=== PATIENT | female | born 1960 | race Caucasian/White ===

== ENCOUNTER 2018-08-15 11:11 | Outpatient (REF) | payer BC, SELFPAY ==
--- NOTE | 2018-08-15 09:15 | PAPFT_PTH ---
PATIENT: Almaz Hall V LOC: [facility] U#:[id number] AGE/SX: 58/F ROOM: RE08/15/[address]: LUIS Montiel : 1960 BED: DIS: 08/15/2018 SPEC #: [id number] RECD: 08/15/18 13:19 STATUS: CHANTAL FERRERA #: [id number] ELISSA: 08/15/18 09:[address]: Cira Bennett DEPT: [facility] Cytology RECD BY: Meenakshi Collins Tissues: 1 - CX/ENDOCX FOR PAP SMEARS Procedures: PAP THIN PREP/UVM Screening HPV DNA PROBE Comments: [id number]
== END 2018-08-15 11:31 ==
LOC: LBN 11:11
PROVIDERS: PCP Nurse Practitioner Family; Visit Provider Nurse Practitioner Family
DX: Z12.4 Encounter for screening for malignant neoplasm of cervix (principal); Z11.51 Encounter for screening for human papillomavirus (HPV)
CPT/HCPCS: 88142; 87624

== ENCOUNTER 2018-10-12 01:05 | Outpatient (CLI) | payer BC, SELFPAY ==
--- NOTE | 2018-10-12 07:55 | DI.MAMMO_ITS ---
SYMPTOM/DIAGNOSIS: BREAST CANCER SCREENING Z12.31 BILATERAL SCREENING MAMMOGRAM: Mammograms were interpreted according to the usual protocol including computer analysis with CAD system, tomosynthesis and C view imaging. Comparison is made with exams from 2012 through 2017. The breasts are composed of extremely dense fibroglandular tissue, breast density category D, No suspicious masses or suspicious microcalcifications are seen. There has been no significant change. IMPRESSION: Category 1-D, negative mammogram. Yearly screening mammography is recommended. [facility] ASSESSMENT OF FINDINGS: Negative. Category 1. Patient will receive a letter notifying them of these results. BI-RADS category D. The breasts are extremely dense, which lowers the sensitivity of mammography.
[2018-10-12 08:49] LABS: Anion Gap 8.3 mmol/L (3-11); BUN 14 mg/dL (7-18); CO2 31.7 mmol/L (21.0-32.0); CREATININE 0.89 mg/dL (0.55-1.02); Calcium 9.7 mg/dL (8.5-10.1); Chloride 102 mmol/L (98-107); Cholesterol 242 mg/dL (50-200); Glucose 89 mg/dL (70-100); HDL Cholesterol 94 mg/dL (40-60); LDL CHOLESTEROL 134 mg/dL (<100); Sodium 142 mmol/L (136-145); Triglyceride 50 mg/dL (30-150)
== END 2018-10-12 01:25 ==
PROVIDERS: PCP Nurse Practitioner Family; Visit Provider Nurse Practitioner Family
DX: E78.5 Hyperlipidemia, unspecified (principal); Z12.31 Encounter for screening mammogram for malignant neoplasm of breast
CPT/HCPCS: 36415; 77063; 77067; 80048; 80061; 83721

== ENCOUNTER 2019-08-26 01:49 | Outpatient (CLI) | payer BC, SELFPAY ==
--- NOTE | 2019-08-26 14:24 | DI.US_ITS ---
EXAM: US CAROTID CLINICAL HISTORY: Right carotid plaque seen on [facility] screening,mild carotid artery disease, I77.9 TECHNIQUE: Ultrasound performed using standard protocol. COMPARISON: There were no prior examinations for comparison. FINDINGS: On the right, no hemodynamically significant velocity elevations are present. The right vertebral ar miryam is antegrade. On the left, no hemodynamically significant velocity elevations are present. The left vertebral pearl ry is antegrade. IMPRESSION: No evidence of hemodynamically significant cervical carotid artery stenosis.
== END 2019-08-26 02:09 ==
PROVIDERS: PCP Nurse Practitioner Family; Visit Provider Nurse Practitioner Family
DX: I77.89 Other specified disorders of arteries and arterioles (principal)
CPT/HCPCS: 93880

== ENCOUNTER 2019-09-11 00:40 | Outpatient (CLI) | payer BC, SELFPAY ==
--- NOTE | 2019-09-11 10:24 | DI.US_ITS ---
APPROVED REPORT EXAM: Comprehensive 2D, Doppler, and color-flow Echocardiogram Rhythm: NSR Indications: MVP per patient but no ECHo, + systolic murmur. i34.0 Conclusion Left Ventricle : The left ventricle is normal size. The left ventricular systolic function is normal. There is normal LV segmental wall motion. The left ventricular diastolic function is normal. LVEF is estimated to be 60-65%. Right Ventricle : The right ventricle is normal size. The right ventricular systolic function is norm al. Atria : The left atrium size is normal. The right atrium size is normal. Aortic Valve : Aortic valve is probably trileaflet. Aortic valve leaflets open well. There is no aort ic valvular stenosis. Trace aortic regurgitation by color doppler. Mitral Valve : Mitral valve leaflets appear myxomatous, and are thickened. redundant chordae. No wandy dence of mitral valve stenosis. Mild mitral regurgitation directed posteriorly. The mitral valve leaf lets bend without significant prolapse Tricuspid Valve : Tricuspid valve leaflets appear myxomatous and thickened but open well. Mild tricus pid regurgitation. Pulmonic Valve : The pulmonary valve is normal in structure. Great Vessels : The aortic root is normal in size. The IVC is very mildly dialted. The IVC collapses >50% with inspiration. Estimated RVSP is 23-26 mmHg. There is no prior echocardiogram available for comparison. Wall motion Left Ventricle The left ventricle is normal size. The left ventricular systolic function is normal. There is normal left ventricular wall thickness. There is normal LV segmental wall motion. The left ventricular diast olic function is normal. LVEF is estimated to be 60-65%. Right Ventricle The right ventricle is normal size. The right ventricular systolic function is normal. Atria The left atrium size is normal. The right atrium size is normal. Aortic Valve Aortic valve is probably trileaflet. Aortic valve leaflets open well. There is no aortic valvular marisel nosis. Trace aortic regurgitation by color doppler. Mitral Valve Mitral valve leaflets appear myxomatous, and are thickened. redundant chordae. No evidence of mitral valve stenosis. Mild mitral regurgitation directed posteriorly. The mitral valve leaflets bend withou t significant prolapse Tricuspid Valve Tricuspid valve leaflets appear myxomatous and thickened but open well. Mild tricuspid regurgitation. Pulmonic Valve The pulmonary valve is normal in structure. Great Vessels The aortic root is normal in size. The ascending aorta is normal in size. The IVC is very mildly dial pk. The IVC collapses >50% with inspiration. Estimated RVSP is 23-26 mmHg. Pericardium There is no pericardial effusion. 2D Dimensions IVSd 0.84 cm F: 0.6-1.0 LV EDV A2C 76.10 mL PWd 0.88 cm F: 0.6 - 1.0 LV EDV A4C 75.40 mL LVDd 4.32 cm F: 3.9 - 5.3 LA Volume Index A2C 23.79 mL/m2 LVDs 2.95 cm F: 2.2 - 3.5 LA Volume Index A4C 19.13 mL/m2 Aortic Root 2.60 cm F: 2.7 - 3.3 LA Volume Index Biplane 24.66 mL/m2 RA Area A4C 15.99 cm2 LA Area A4C 13.02 cm2 LVOT 2.00 cm (M/F) 1.5-2.5 LA Area A2C 16.78 cm2 LVEF (Teich) 60.03 % EF AP4 62.07 % LVEF (Kirkpatrick's) 66.04 % F: 54 - 74 EF AP2 69.12 % LV Volume 64.18 mL F: 46 - 106 EF BP 66.04 % LV Volume Index 35.65 mL/m2 F: 29 - 61 FS 31.73 % LV Diastology E/A Ratio 1.5 MED E' 0.12 (>0.07 m/s) LV E/e MED 6.52 (<14) LAT E' 0.12 (>0.1 m/s) LV E/e LAT 6.66 (<14) Pulm Vein s 0.46 m/s PV S/D Ratio 1.46 Pulm Vein d 0.32 m/s Pulm Vein a 0.37 m/s Aortic Valve LVOT Area 3.13 cm2 LVOT Peak Billy. 1.32 m/s LVOT Mean Billy. 0.83 m/s LVOT Peak Gr. 6.99 mmHg GABY Vmax Index 1.53 cm2/m2 LVOT Mean Gr. 3.28 mmHg LVOT VTI 0.30 m GABY Mean Billy. Index 1.37 cm2/m2 AoV Peak Billy. 1.49 (0.5-1.3 m/s) AoV Mean Billy. 1.05 m/s AO Peak GR. 8.93 mmHg AO Mean GR. 4.88 (<5 mmHg) VTI Ratio 0.84 GABY (VTI) 2.62 (2.5-4.5 cm2) GABY (VTI) Index 1.45 cm/m2 Mitral Valve MV E Max Billy. 0.79 (0.4-1.3 m/s) MV A Velocity 0.53 (0.4-1.3 m/s) E/A Ratio 1.51 MV Decel. Time 180.28 (160-240 msec) MV PHT 52.28 msec MVA PHT 4.21 cm2 Tricuspid Valve TR P. Velocity 2.41 m/s TV Regurg Vmax 2.41 m/s RVSP 31.27 mmHg TR P. Gradient 23.27 mmHg
== END 2019-09-11 01:00 ==
PROVIDERS: PCP Nurse Practitioner Family; Visit Provider Nurse Practitioner Family
DX: I34.1 Nonrheumatic mitral (valve) prolapse (principal); R01.1 Cardiac murmur, unspecified; I08.0 Rheumatic disorders of both mitral and aortic valves
CPT/HCPCS: 93306

== ENCOUNTER 2019-10-21 00:55 | Outpatient (CLI) | payer BC, SELFPAY ==
--- NOTE | 2019-10-21 15:08 | DI.MAMMO_ITS ---
EXAM: MG MAMMO SCREENING CLINICAL HISTORY: screening Z12.39 TECHNIQUE: Bilateral full field digital CC and MLO mammographic images were obtained with 3D tomosyn thesis and utilizing computer aided detection (CAD). COMPARISON: Available for comparison. FINDINGS: Masses/Architectural Distortion: None seen. Microcalcifications: No suspicious pleomorphic-type are seen. Skin Thickening/Nipple Retraction: None. IMPRESSION: 1. No significant interval change with no specific features of malignancy noted. 2. Unless there is more urgent need, screening mammography is recommended, as per [employer] guidelines. ACR BI-RAD Category- 1 Negative Breast Density - Category D - Extremely dense The mammogram demonstrates the patient's breast tissue is dense. Dense breast tissue is very common a nd is not abnormal but dense breast tissue can make it harder to find cancer on a mammogram. Also, de nse breast tissue may increase their breast cancer risk. This information about the result of the [facility] mogram report was provided to the patient to raise their awareness. Use this report when you speak wi th the patient about their risks for breast cancer, which includes their family history. At that time , you may recommend for more screening tests (Ultrasound or MRI) as they might be useful based on the ir risk. A negative radiographic report should not delay biopsy if a dominant or clinically suspicious mass is present. Up to ten percent of cancers are not identified on mammography. A negative report may reinforce clinical impression. Adenosis and dense breasts may obscure an underlying neoplasm. False positive reports average 6 to 10%. Patient will receive a letter notifying them of these results.
== END 2019-10-21 01:15 ==
PROVIDERS: PCP Nurse Practitioner Family; Visit Provider Nurse Practitioner Family
DX: Z12.31 Encounter for screening mammogram for malignant neoplasm of breast (principal)
CPT/HCPCS: 77063; 77067

== ENCOUNTER 2020-04-04 16:43 | Emergency (ER) | payer BC, SELFPAY ==
[2020-04-04 16:48] VITALS: BP 141/83; PULSE 73; RESP 18; TEMP 37.4; O2SAT 100
--- NOTE | 2020-04-04 17:28 | ED.GENADUL_ITS ---
Discharge Plan Disposition Patient Disposition: HOME Condition: Stable Discharge Details Chief Complaint: Laceration Clinical Impression: Laceration Primary Care Provider: Cira Bennett ED Provider: Josi Harrison Home Meds and New Rx's Prescriptions: Continued Adults Multivitamin 18 mg iron-400 mcg-25 mcg tablet PO RF: 0 ascorbic acid (vitamin C) 500 mg capsule 1,000 mg PO DAILY RF: 0 turmeric 400 mg capsule PO DAILY RF: 0 vitamin B complex tablet 1 tab PO DAILY RF: 0 cholecalciferol (vitamin D3) 1,000 UNIT capsule 1,000 unit PO DAILY RF: 0 aspirin [Aspirin Low-Strength] 81 MG tablet,chewable 81 mg PO DAILY RF: 0 Discharge Instructions Instructions: Laceration (ED) Additional Instructions: Keep initial dressing in place for 24 hours. Begin to wash area gently with soap and water once or twice daily. Apply topical antibiotic ointment to the wound. Observe for any signs of infection, redness, swelling, pain or discharge as discussed. Avoid submerging hand in water. Suture removal in 10 days as discussed. Your tetanus is due to be updated in 2 years Return to the emergency room for any worsening, concerns or alarming symptoms sooner if needed or for any signs of infection as discussed Discharge Data Discharge Date/Time-TO BE ENTERED AT DEPARTURE: 04/04/20 17:40 Medical Decision Making 60-year-old patient presenting for a laceration to her left forearm distally which occurred accidentally at home a on a piece of sharp glass which was broken in the kitchen. Patient has no significant concern of foreign body. Patient reports minimal pain. Tetanus up-to-date. Discussed plans for wound management. Patient consents to sutures. Area prepped with Betadine. See procedure note for details. Adequate wound closure with combination of both mattress sutures and interrupted sutures. Patient tolerated procedure without difficulty. Discussed wound management and suture removal as well as signs of infection. The patient was stable and requested discharge. Prior to discharge, my usual and customary return precautions were reviewed with the patient - this included follow-up instructions and reasons to return to the Emergency Department if conditions worsens, does not improve as expected, or other new concerns arise. HPI General Date/Time Provider Initiated Documentation: 04/04/20 16:44 . HPI Narrative: This is a 60-year-old patient presenting the emergency room for complaints of laceration to her left wrist. Patient sustained laceration on glass prior to arrival. Patient does not have concern of retained foreign body as this was a clean piece of glass that was broken in the kitchen. Patient reports minimal bleeding. Patient's tetanus up-to-date 8 years ago. Patient denies any numbness, tingling or weakness. Patient denies any other concerns or complaints at this time. No pain with range of motion of the wrist. No paresthesia. No weakness. Related Data Home Medications Medication Instructions Recorded Confirmed cholecalciferol (vitamin D3) 1,000 unit PO DAILY 01/20/13 09/19/19 aspirin [Aspirin Low-Strength] 81 mg PO DAILY tab-cap 05/15/15 09/19/19 multivit with minerals-iron 18 tab PO tab 07/24/18 09/19/19 mg-folic ac 400 mcg-vit K 25 mcg tablet vitamin B complex 1 tab PO DAILY 12/14/18 09/19/19 ascorbic acid (vitamin C) 500 mg 1,000 mg PO DAILY cap 08/16/19 09/19/19 capsule turmeric 400 mg capsule mg PO DAILY cap 08/16/19 09/19/19 Allergies Allergy/AdvReac Type Severity Reaction Status Date / Time Sulfa (Sulfonamide Allergy Severe RASH Verified 09/19/19 14:58 Antibiotics) General Stated Complaint: Laceration TREVOR: 3 Review of Systems All systems reviewed & are unremarkable except as noted in HPI and below [facility] Medical History Hyperlipidemia (Chronic) Mitral valve prolapse (Chronic) Osteoarthritis of right hip (Chronic) Mild-mod right hip dysplasia Osteopenia (Chronic) Dexa 2011 Periodic limb movement disorder (Chronic) PSG 08/23/13 Upper airway resistance syndrome (Chronic) PSG 08/23/13 Surgical History (Updated 08/16/19 @ 14:38 by Cira Bennett NP) H/O bilateral salpingo-oophorectomy (Inactive 12/21/18) By Dr. Chambers at [facility] for suspicious left ovarian cyst S/P colonoscopy (Acute 02/10/12) S/P laparoscopic procedure (Acute ~1996) Diagnostic lap for endometriosis Family History (Updated 08/20/19 @ 10:42 by Joe Ching) Mother Hyperlipidemia Collagenous colitis Hypertension Father Hyperlipidemia Stroke Prostate cancer Peripheral neuropathy Atrial fibrillation Carotid artery disease Myocardial infarction Hypertension Sister Obstructive sleep apnea syndrome Peripheral neuropathy Depression Sister Alcohol abuse Sister No problems noted. Brother No problems noted. Daughter No problems noted. Daughter No problems noted. Maternal Grandfather Stomach cancer Maternal Grandmother Heart disease Stroke Paternal Grandfather Heart disease Bone cancer Prostate cancer Paget's bone disease Paternal Grandmother , age 95 Peripheral neuropathy Heart disease Brother Heart disease Social History Smoking/Tobacco Use Status: Never Alcohol Intake: current Alcohol Intake frequency: a few times a week Alcohol type: wine Drug use: Never Substance use type: does not use Caregiver/Support person: No Household members: other Details: 4 Housing: house Do you need help understanding health information?: Rarely current occupation: Salon Assistant Pets and animals: Yes Pets and animals: dog(s) Sexually active: No Do you think of yourself as: straight/heterosexual Current gender identity: female What is your relationship status?: How often do you talk on the phone with friends or family?: three or more times per week How often do you get together with friends or relatives?: once per week How often do you attend samaritan or amish services?: 4 or more times per year Do you belong to any clubs or organized social groups?: yes Panel score (0-1 are the most socially isolated patients): 4 What type of physical activity do you participate in: walking Duration: 30-45 minutes/day Frequency: 5-6 times per week Annie/Yarsanism: Congregational Special annie needs: No Seatbelt use: always Helmet use: Yes Helmet use: always Drive intox or ride w/intox chuck wagon driver: No Do you feel safe at home: Yes Do you feel safe in your relationship?: Yes History History 2 Para 2 Hx # Term Pregnancies Multiple births Hx # Pregnancies Ectopic pregnancies AB induced Hx Number of Living Children 2 AB spontaneous Exam Narrative Exam Narrative: CONST: Healthy appearing patient, in no acute distress. Well hydrated. Alert and oriented. HENMT: Head nomocephalic, normal to inspection. Atraumatic. Hearing grossly normal. EYES: General normal appearance. Alignment normal. Eyelids normal. Conjunctiva normal. NECK: Normal visual inspection. FROM. Trachea midline. No Midline tenderness. CHEST: Normal insepection of the chest. RESP: Normal respiratory effort. Speaking full sentences. No cough. No audible wheezing. No retractions. CARDIO: No JVD. MUSCULOSKELETAL: Normal Gait. FROM of all extremities. Patient with full range of motion of the left arm. No pain with palpation of the wrist bones or hand. Patient has a 2 cm laceration on the lateral wrist. Linear. SKIN: Normal. Dry. No rashes. NEURO: Alert and awake. Speech clear. PSYCH: Normal affect. Cooperative. Course Vital Signs Vital signs: Vital Signs Temperature 37.4 C 04/04/20 16:48 Pulse 73 04/04/20 16:48 Respiratory Rate 18 04/04/20 16:48 Blood Pressure 141/83 H 04/04/20 16:48 Pulse Oximetry 100 04/04/20 16:48 Temperature 37.4 C 04/04/20 16:48 Pulse 73 04/04/20 16:48 Respiratory Rate 18 04/04/20 16:48 Respiratory Effort Non-Labored 04/04/20 16:51 Blood Pressure 141/83 H 04/04/20 16:48 Blood Pressure Position Sitting 04/04/20 16:48 Pulse Oximetry 100 04/04/20 16:48 Oxygen Delivery Method Room Air 04/04/20 16:48 Oxygen Flow Rate 0 04/04/20 16:48 Pain Level 0 04/04/20 16:48 Procedures Laceration Laceration 1: Site: upper extremity (Forearm distally) Side (If applicable): left Size (cm): 2 Description: linear Depth: simple, single layer Local Anesthetic: Lidocaine 1% Amount of anesthesia used (mL): 3 Pre-repair: wound explored and irrigated extensively Skin layer closed with: other (Prolene) Size (cm): 4-0 Number of sutures: 5 Technique: simple, interrupted and horizontal mattress
== END 2020-04-04 17:40 | disposition home or self-care (01) ==
PROVIDERS: Emergency Provider Physician Assistant; PCP Nurse Practitioner Family
DX: S61.512A Laceration without foreign body of left wrist, initial encounter (principal); W25.XXXA Contact with sharp glass, initial encounter
CPT/HCPCS: 12001

== ENCOUNTER 2020-05-21 22:09 | Outpatient (REF) | payer BC, SELFPAY ==
[2020-05-21 21:10] LABS: HCT 41.3 % (36.0-46.0); HGB 13.8 g/dL (12.0-15.5); Mean Corp. HGB Concentration 33.4 g/dL (32.0-36.0); Mean Corpuscular Hemoglobin 30.9 pg (27.0-33.0); Mean Corpuscular Volume 92.6 fL (80-95); Mean Platelet Volume 11.3 fL (8.0-11.0); Platelet Count 223 x1000/uL (130-400); RBC 4.46 m/cumm (4.00-5.20); RBC Distribution Width 12.2 % (11.7-14.6); White Blood Cell Count 4.69 k/cumm (4.4-10.8)
[2020-05-21 21:42] LABS: Hemoglobin A1C 5.2 % (3.8-5.6)
[2020-05-21 21:46] LABS: ALT 29 U/L (14-59); AST 35 U/L (15-37); Albumin 4.4 g/dL (3.4-5.0); Alkaline Phosphatase 69 U/L (46-116); Anion Gap 7.3 mmol/L (3-11); BUN 16 mg/dL (7-18); Bilirubin, Total 0.5 mg/dL (0.2-1.0); CO2 30.7 mmol/L (21.0-32.0); CREATININE 0.84 mg/dL (0.55-1.02); Calcium 9.8 mg/dL (8.5-10.1); Calculated LDL 150 mg/dL (<100); Chloride 103 mmol/L (98-107); Cholesterol 240 mg/dL (<200); Glucose 89 mg/dL (74-106); HDL Cholesterol 78 mg/dL (40-60); Potassium 4.6 mmol/L (3.5-5.1); Sodium 141 mmol/L (136-145); Total Protein 7.2 g/dL (6.4-8.2); Triglyceride 62 mg/dL (<150); Vitamin B12 779 pg/mL (193-986)
== END 2020-05-21 22:29 ==
LOC: LBN 22:09
PROVIDERS: PCP Nurse Practitioner Family; Visit Provider Nurse Practitioner Family
DX: E78.5 Hyperlipidemia, unspecified (principal); R20.2 Paresthesia of skin
CPT/HCPCS: 80053; 80061; 85027; 82607; 83036

== ENCOUNTER 2020-10-14 00:06 | Outpatient (CLI) | payer BC, SELFPAY ==
--- NOTE | 2020-10-14 08:00 | DI.DEXA_ITS ---
EXAM: XR DEXA BONE DENSITY W/WO ARTHUR CLINICAL HISTORY: Osteopenia, last dexa 2011,M85.80 TECHNIQUE: Routine DEXA evaluation of the lumbar spine, hip, or forearm. COMPARISON: No exams were available for comparison FINDINGS: Performed on a Hologic unit. Lateral image: No compression fracture evident. Lumbar Spine total T-score: 0.7 Hip total T-score:-1.9 Independent reading at the femoral neck yields a T-score of -2.2 Forearm total T-score: -1.8 IMPRESSION: Bone mineral density measures in the osteopenia range. Fracture risk is moderate. Note: Any spine fracture indicates 5x risk for subsequent spine fracture and 2x risk for subsequent h ip fracture. World Health Organization criteria for BMD interpretation classify patients: Normal...... T- Score at or above -1.0 Osteopenic... T- Score between -1.0 and -2.5 Osteoporosis... T-Score at or below -2.5
== END 2020-10-14 00:26 ==
PROVIDERS: PCP Nurse Practitioner Family; Visit Provider Nurse Practitioner Family
DX: M85.89 Other specified disorders of bone density and structure, multiple sites (principal)
CPT/HCPCS: 77080

== ENCOUNTER 2021-06-17 01:53 | Outpatient (CLI) | payer BC, SELFPAY ==
--- NOTE | 2021-06-17 08:30 | DI.MAMMO_ITS ---
Exam(s) MAMMO SCREENING EXAM: MAMMO SCREENING CLINICAL HISTORY: screening,Z12.39. TECHNIQUE: Bilateral full field digital CC and MLO mammographic images were obtained with 3D tomosyn thesis and utilizing computer aided detection (CAD). COMPARISON: Prior mammograms dating back to 2011, the most recent being September 2019. FINDINGS: Fibroglandular tissue is again noted be dense, this decreasing the sensitivity of the mammogram for f inding in underlying lesions. There are no new obvious radiographic findings in left breast. In the right breast there is an asymmetric density medial of center approximately 3 cm in from the ni pple, measuring approximately 6 x 5 millimeters. Spot compression CC and MLO views recommended as we ll as ultrasound There are no malignant-appearing microcalcification groups is region or elsewhere either breast. There is no significant architectural distortion nor skin thickening-retraction. IMPRESSION: Dense bilateral fibroglandular tissue. No radiographic evidence of malignancy in left breast. Possi ble right breast nodule. Spot compression views and ultrasound recommended. BI-RADS Category 0 - Assessment Incomplete: Need additional imaging evaluation Breast Density - Category D - Extremely dense Breast density Category C or D implies that the patient has dense breast tissue. Dense breast tissue can make it harder to find cancer on a mammogram. Dense breast tissue is also associated with an incr eased risk of breast cancer. This information about the result of the mammogram report was provided to the patient to raise their awareness. Use this report when you speak with the patient about their risks for breast cancer, which includes their family history. At that time, you may recommend additional screening tests (Ultrasoun d or MRI) as these tests may add significant information. A negative radiographic report should not delay biopsy if a dominant or clinically suspicious mass is present. Up to ten percent of cancers are not identified on mammography. A negative report may reinforce clinical impression. Adenosis and dense breasts may obscure an underlying neoplasm. False positive reports average 6 to 10%. Patient will receive a letter notifying them of these results.
== END 2021-06-17 02:13 ==
PROVIDERS: PCP Nurse Practitioner Family; Visit Provider Nurse Practitioner Family
DX: Z12.31 Encounter for screening mammogram for malignant neoplasm of breast (principal); R92.8 Other abnormal and inconclusive findings on diagnostic imaging of breast
CPT/HCPCS: 77063; 77067

== ENCOUNTER 2021-07-02 04:09 | Outpatient (CLI) | payer BC, SELFPAY ==
--- NOTE | 2021-07-02 | DI.MAMMO_ITS ---
Exam(s) MG MAMMO SCREEN CALL BACK UNI US BREAST RT LIMITED EXAM: US BREAST RT LIMITED CLINICAL HISTORY: F/U MAMMO, RT ASYMMETRIC DENSITY, ? NODULE TECHNIQUE: Ultrasound performed using standard protocol. COMPARISON: US US ECHOCARDIOGRAM from 09/11/2019 MG MG MAMMO SCREEN CALL BACK UNI from 07/02/2021 MG MG MAMMO SCREEN CALL BACK UNI from 07/02/2021 FINDINGS: Additional mammographic views of the right breast and right breast ultrasound are interpreted in conj unction. These examinations were obtained to evaluate questionable area of nodularity or asymmetric density seen on recent mammogram. Additional mammographic views fail to show a discrete mass. Breas t ultrasound shows no evidence of a mass or cyst. IMPRESSION: No specific evidence of malignancy at this time. Follow-up unilateral right breast mammogram recomme nded in 6 months. BI-RADS Cat 3 - 6 month - Probably Benign Finding: Recommend follow-up imaging in 6 months Breast Density - Category C - Heterogeneously dense DATA REPOSITORY:
== END 2021-07-02 04:29 ==
PROVIDERS: PCP Nurse Practitioner Family; Visit Provider Nurse Practitioner Family
DX: R92.8 Other abnormal and inconclusive findings on diagnostic imaging of breast (principal)
CPT/HCPCS: 76642; 77063; 77067

== ENCOUNTER 2021-08-26 02:11 | Outpatient (CLI) | payer BC, SELFPAY ==
[2021-08-26 10:06] LABS: Anion Gap 4.1 mmol/L (3-11); BUN 18 mg/dL (7-18); CO2 33.9 mmol/L (21.0-32.0); Calcium 9.6 mg/dL (8.5-10.1); Calculated LDL 149 mg/dL (<100); Chloride 104 mmol/L (98-107); Cholesterol 258 mg/dL (<200); Estimated GFR 56.37 (mL/min/1.73m2); Glucose 88 mg/dL (74-106); HDL Cholesterol 99 mg/dL (40-60); Potassium 4.6 mmol/L (3.5-5.1); Sodium 142 mmol/L (136-145); TSH (W/Ref FT4) 1.25 uIU/mL (0.36-3.74); Triglyceride 50 mg/dL (<150)
[2021-08-27 14:35] LABS: Albumin 67.4 % (55.8-66.1); Total Protein 7.5 g/dL (6.3-8.2)
== END 2021-08-26 02:12 | disposition home or self-care (01) ==
LOC: LBO 02:12
PROVIDERS: Psychiatry & Neurology Neurology; PCP Nurse Practitioner Family; Visit Provider Nurse Practitioner Family
DX: E78.5 Hyperlipidemia, unspecified (principal); G60.9 Hereditary and idiopathic neuropathy, unspecified; G62.9 Polyneuropathy, unspecified
CPT/HCPCS: 36415; 80048; 80061; 84165; 84443

== ENCOUNTER 2022-01-13 02:47 | Outpatient (CLI) | payer BC, SELFPAY ==
--- NOTE | 2022-01-13 | DI.US_ITS ---
Exam(s) US BREAST RT COMPLETE EXAM: US BREAST RT COMPLETE CLINICAL HISTORY: 6 MONTH F/U . TECHNIQUE: Complete ultrasound of the right breast was performed including all 4 quadrants, the retr oareolar region, and the ipsilateral axilla. COMPARISON: Prior mammograms were reviewed. Today's spot compression view was also reviewed FINDINGS: No evidence of solid or significant cystic lesions in all 4 quadrants of the right breast. No adenopathy in the right axilla. IMPRESSION: Negative complete right breast ultrasound Appropriate follow-up is to keep this patient on her yearly mammogram schedule, with earlier imaging if a self detected breast change is noted. BI-RADS Category 2 - Benign Findings Breast Density - Category C - Heterogeneously dense Breast density Category C or D implies that the patient has dense breast tissue. Dense breast tissue can make it harder to find cancer on a mammogram. Dense breast tissue is also associated with an incr eased risk of breast cancer. This information about the result of the mammogram report was provided to the patient to raise their awareness. Use this report when you speak with the patient about their risks for breast cancer, which includes their family history. At that time, you may recommend additional screening tests (Ultrasoun d or MRI) as these tests may add significant information. A negative radiographic report should not delay biopsy if a dominant or clinically suspicious mass is present. Up to ten percent of cancers are not identified on mammography. A negative report may reinforce clinical impression. Adenosis and dense breasts may obscure an underlying neoplasm. False positive reports average 6 to 10%. Patient will receive a letter notifying them of these results.
--- NOTE | 2022-01-13 08:00 | DI.MAMMO_ITS ---
Exam(s) MG MAMMO DIAGNOSTIC UNI EXAM: MAMMO DIAGNOSTIC UNI-RIGHT AND COMPLETE RIGHT BREAST ULTRASOUND CLINICAL HISTORY: 6mo f/u on right breast abnormal mammo,r92.8. TECHNIQUE: Unilateral spot mammographic images were obtained with 3D tomosynthesis technique and uti lizing computer aided detection (CAD). We also performed complete right breast ultrasound including all 4 quadrants, the retroareolar region , and the right axilla COMPARISON: Prior mammograms were reviewed, the most recent being June 2021. FINDINGS: DIAGNOSTIC RIGHT BREAST MAMMOGRAM: Some asymmetric tissue is seen. In addition to the CC and MLO views we performed an additional 3D sp ot CC view which renders this area less concerning. Then proceeded to ultrasound COMPLETE RIGHT BREAST ULTRASOUND: There is no evidence of solid or significant cystic lesions in all 4 quadrants. Right axilla is negative for adenopathy IMPRESSION: No radiographic evidence of malignancy Negative complete right breast ultrasound Appropriate follow-up is to places patient back on her yearly mammogram schedule, with earlier imagin g if a self detected breast changes noted.. The patient was informed of the findings and follow-up recommendations prior to leaving the [facility] today. BI-RADS Category 2 - Benign Findings Breast Density - Category C - Heterogeneously dense Breast density Category C or D implies that the patient has dense breast tissue. Dense breast tissue can make it harder to find cancer on a mammogram. Dense breast tissue is also associated with an incr eased risk of breast cancer. This information about the result of the mammogram report was provided to the patient to raise their awareness. Use this report when you speak with the patient about their risks for breast cancer, which includes their family history. At that time, you may recommend additional screening tests (Ultrasoun d or MRI) as these tests may add significant information. A negative radiographic report should not delay biopsy if a dominant or clinically suspicious mass is present. Up to ten percent of cancers are not identified on mammography. A negative report may reinforce clinical impression. Adenosis and dense breasts may obscure an underlying neoplasm. False positive reports average 6 to 10%. Patient will receive a letter notifying them of these results.
== END 2022-01-13 03:07 ==
PROVIDERS: PCP Nurse Practitioner Family; Visit Provider Nurse Practitioner Family
DX: R92.8 Other abnormal and inconclusive findings on diagnostic imaging of breast (principal); N64.59 Other signs and symptoms in breast
CPT/HCPCS: 76642; 77061; 77065; G0279

== ENCOUNTER 2022-06-07 07:27 | Day surgery (SDC) | payer BC, SELFPAY ==
--- NOTE | 2022-06-06 16:07 | W.PM.HP.N ---
Assessment and Plan Assessment and plan (1) Colon cancer screening: Status: Acute Assessment and plan: Informed consent is obtained for the procedural (explained in simple layman's terms that the pt. and/or family could understand) explaining risks vs benefits and alternatives to the procedure and consequences if we do not do the procedure and need/rational for the procedure. Risks include but are not limited to: bleeding, infection, perforation of esophagus, stomach, colon, small intestines, bronchus or trachea, or PTX. This would necessitate emergency surgery to repair the damage w/ possible ostomy; and other associated complications w/ the required surgery. Also complications of anesthesia including aspiration, MN/CVA/. History of Present Illness Narrative: She was on antibiotics w/ covid. This was early in February. Since than she has had problems w/ diarrhea adn control of BM. Stools are 2-3 x a day. They are formed. No blood. No weight loss. NO residue cough/sob breathe since covid. Assessment & Plan (1) Encounter for screening colonoscopy: The patient is here for Colonoscopy pre-op. Her last screening was in 2011 and was unremarkable. She has no family history of colon cancer. She has not had any bowel habit changes. -Discussed colonoscopy bowel prep as well as the procedure. Discussed possible complications of the procedure to include bleeding, pain, perforation, missed small lesion/polyp, sore throat, aspiration and adverse reaction to the medications. Questions were answered to patient?s satisfaction. No guarantees were implied or given.? She will hold her aspirin and vitamin D for 5 days prior to her procedure. HPI 62 y/o female with history of hyperlipidemia presents for colonoscopy screening pre-op. Her last screening was in? 2011, which was unremarkable. She denies a family history of colon cancer.? Patient reports that she had COVID in February at which time she was treated with antibiotics.? She started having diarrhea following antibiotics and discontinued their use.? However since then she has noted having formed stools after each meal.? At times this is associated with fecal urgency.? She denies having any bloody or black tarry stools, abdominal pain, diarrhea or constipation. She denies constitutional symptoms. Denies use of marijuana or any other recreational or illegal drugs. She denies chest pain, palpitations, dyspnea or dyspnea with exertion.? Patient describes walking daily and also participates in mountain biking on a weekly basis.? She denies prior history or family history of adverse reactions or complications with anesthesia. The patient denies any history of stroke, MN, seizures, bleeding or clotting disorders. She denies having any implanted metal in her body. Patient is here today for a colonoscopy for routine colorectal cancer surveillance. She completed bowel prep yesterday p.m. the results are just a clear yellow effluent. At this time she is not having any abdominal pain or cramping. She is having no nausea. She is not having any chest pain/chest pressure, shortness of breath, productive cough, or fevers. She has no changes in her medications or health status. She held her aspirin and her vitamin D. All questions are answered and she is stable for proposed procedure today. Review of Systems All systems reviewed & are unremarkable except as noted in HPI and below PFSH All Active Problems Colon cancer screening (Acute) Upper airway resistance syndrome (Chronic) PSG 08/23/13 Medical History COVID-19 (~03/08/22) Herpes zoster (~2017) Left flank Hyperlipidemia Idiopathic small fiber peripheral neuropathy Osteoarthritis of right hip Mild-mod right hip dysplasia Osteopenia Dexa 2019 Paresthesia of right leg Periodic limb movement disorder PSG 08/23/13 Surgical History H/O bilateral salpingo-oophorectomy (12/21/18) By Dr. Chambers at [facility] for suspicious left ovarian cyst S/P colonoscopy (02/10/12) S/P laparoscopic procedure (~1996) Diagnostic lap for endometriosis Family History Mother Hyperlipidemia Collagenous colitis Hypertension Heart disease Father Hyperlipidemia Stroke Prostate cancer Peripheral neuropathy Atrial fibrillation Carotid artery disease Myocardial infarction Hypertension Sister Obstructive sleep apnea syndrome Peripheral neuropathy Depression Sister Alcohol abuse Sister No problems noted. Brother No problems noted. Daughter No problems noted. Daughter No problems noted. Maternal Grandfather Stomach cancer Maternal Grandmother Heart disease Stroke Paternal Grandfather Heart disease Bone cancer Prostate cancer Paget's bone disease Paternal Grandmother , age 95 Peripheral neuropathy Heart disease Brother Heart disease Social History Smoking/Tobacco Use Status: Never Smoking risk assessment performed?: Yes Alcohol Intake: current Alcohol Intake frequency: a few times a week Alcohol type: wine Drug use: Never Substance use type: does not use Caregiver/Support person: No Household members: spouse and children Housing: house Communication Needs: None Do you need help understanding health information?: Never current occupation: Rehabilitation Manager Pets and animals: Yes Pets and animals: dog(s) Sexually active: No Current gender identity: decline to answer What is your relationship status?: How often do you talk on the phone with friends or family?: three or more times per week How often do you get together with friends or relatives?: once per week How often do you attend religious or episcopal services?: 4 or more times per year Do you belong to any clubs or organized social groups?: no Panel score (0-1 are the most socially isolated patients): 3 What type of physical activity do you participate in: walking and other Details: Pilates; body weight/weight exercise Duration: 30-45 minutes/day Frequency: 5-6 times per week Annie/Oriental Orthodox: Restoration Special annie needs: No Seatbelt use: always Helmet use: Yes Helmet use: always Drive intox or ride w/intox funeral car driver: No Do you feel safe at home: Yes Do you feel safe in your relationship?: Yes History History 2 Para 2 Hx # Term Pregnancies Multiple births Hx # Pregnancies Ectopic pregnancies AB induced Hx Number of Living Children 2 AB spontaneous Meds Allergies and Home Medications Allergies Allergy/AdvReac Type Severity Reaction Status Date / Time Sulfa (Sulfonamide Allergy Severe RASH Verified 06/07/22 07:57 Antibiotics) Home Medications Medication Instructions Recorded Confirmed Type aspirin 81 mg chewable tablet 81 mg PO DAILY 05/15/15 06/07/22 History (Aspirin Low-Strength) multivit with minerals-iron 18 1 tab PO DAILY 07/24/18 06/07/22 History mg-folic ac 400 mcg-vit K 25 mcg tablet (Adults Multivitamin) vitamin B complex 1 tab PO DAILY 12/14/18 06/07/22 History calcium carbonate 500 mg calcium 500 mg PO DAILY 08/24/21 06/07/22 History (1,250 mg) tablet cholecalciferol (vitamin D3) 25 5,000 unit PO DAILY 08/24/21 06/07/22 History mcg (1,000 unit) capsule vitamin K2 45 mcg capsule 45 mcg PO DAILY 08/24/21 06/07/22 History gabapentin 300 mg capsule 300 mg PO TID PRN pain #90 caps 05/30/22 06/07/22 Rx orgrppxo-tsr-ec9-dha 133 mg-epa 1 cap PO DAILY 06/06/22 06/07/22 History 167 ou-zkyr-vqbs-lactoferrin capsule (Dry Eye Formula) propylene glycol 0.6 % eye drops 1 drp ophthalmic (eye) DIRECTED 06/06/22 06/07/22 History (Systane Complete) Exam Const Other: PHYSICAL EXAM GENERAL APPEARANCE: Alert, healthy appearance, oriented, in no acute distress SKIN: No rashes.? No breakdown NECK: Supple, Trachea midline. No JVD. LUNGS: normal respiration/nl chest excursion. ?Clear to auscultation B/l no R/R/W ?HEART: Regular rate and rhythm, ABDOMEN: non tender to palpation, no masses or distention, no hernias. Normal bowel sounds
--- NOTE | 2022-06-06 16:11 | PDOC.DSDIS_ITS ---
Discharge Plan Disposition Condition: Good Discharge Details Reason For Visit: Colonoscopy for colon cancer screening Attending Provider: Brandie Mendez Primary Care Provider: iCra Bennett Home Meds and New Rx's Prescriptions: Continued Adults Multivitamin 18 mg iron-400 mcg-25 mcg tablet 1 tab PO DAILY vitamin B complex tablet 1 tab PO DAILY vitamin K2 45 mcg capsule 45 mcg PO DAILY calcium carbonate 500 mg calcium (1,250 mg) tablet 500 mg PO DAILY Label Comments: patient unsure of dose aspirin [Aspirin Low-Strength] 81 MG tablet,chewable 81 mg PO DAILY cholecalciferol (vitamin D3) 25 mcg (1,000 unit) capsule 5,000 unit PO DAILY gabapentin 300 mg capsule 300 mg PO TID PRN (Reason: pain) Qty: 90 2RF Systane Complete 0.6 % Drops 1 drp ophthalmic (eye) DIRECTED Dry Eye Formula 133 mg-167 mg- 170 mg Capsule 1 cap PO DAILY Discontinued bisacodyl [Dulcolax (bisacodyl)] 5 mg tablet,delayed release (DR/EC) 5 mg PO ONCE Qty: 4 0RF Rx Instructions: Take according to provider's instructions for colonoscopy prep. polyethylene glycol 3350 17 gram/dose powder 17 g PO ONCE Qty: 238 0RF Rx Instructions: To be taken as directed by prescriber's office for colonoscopy prep. Discharge Instructions Additional Instructions: DSU Colonoscopy Post- Op Instructions Instructions for Everyone who is given Anesthesia: For your safety, please do the following for the next twenty-four (24) hours: *Do Not operate a motor vehicle (car, truck, motorcycle, etc.) *Do Not drink alcoholic beverages or use any recreational drugs for the first 24 hours or while taking pain medications. The medications in your body may have a reaction that can be dangerous. *Do Not make any important decisions or sign any important papers. Findings: Normal Follow up: Biopsies were done to rule out any abnormalities. My office will send a letter in 2 to 3 weeks time detailing the results of the biopsies. 1. No lifting over 20 pounds or strenuous activity for the first 24 hours after your procedure. After 24 hours there are no restrictions on your activity but you may feel fatigued for a few days. 2. After you arrive home you may have a light meal and return to your normal diet as you can tolerate it without feeling sick to your stomach. 3. You may have a bloated, gaseous feeling in your belly (abdomen) after a colonoscopy. Passing gas and belching will help. Walking or lying down on your left side with your knees flexed may relieve the discomfort. Call the office at [phone] (Office) or [phone] (Hospital) right away if you notice any of the following: a.Vomiting of blood or ?coffee ground stools?. b.Rectal bleeding 1Tbsp, blood clots or continuous bleeding. c.Severe belly (abdominal) pain. d.A hard distended belly (abdomen) and an inability to pass gas. 4. Please don?t expect to have a normal BM (bowel movement) for 2-3 days after your procedure. 5. If there are questions regarding the findings of your procedure, please contact your doctor 6. If you are unable to contact your doctor with a problem, contact the hospital at [phone]. 7. Continue all your regular medications unless directed otherwise. I understand the above instructions and have no questions. Signature of Patient or Adult Escort Name of Responsible Adult Escort Signature of Nurse Date/Time Activity:: see above Diet:: see above DS: Diagnosis Discharge Diagnosis (1) Colon cancer screening: Status: Acute
--- NOTE | 2022-06-06 16:11 | W.COLOREPORT ---
Colonoscopy Report Date of procedure: 06/07/22 Pre-op diagnosis general: Colon cancer screening Post-op diagnosis procedure note: same Surgeon: Brandie Mendez Anesthesia Type: General:No Airway Estimated blood loss (mL): 1 Complications: None Disposition: same day Prep: Miralax/Dulcolax Retraction Time: 9 Procedure Description: After informed consent was obtained the patient was taken to the procedure room and placed in a left decubitous position. Monitors were applied and a time out was done. The patients name, date of , procedure, allergies to medications and metal in their body was reviewed. The patient was then sedated. Once sedated and comfortable a rectal exam was done. External exam was normal. Internal exam revealed a normal sphincter tone and no palpable masses. Back no without The scope was then introduced and retrofelexed. internal hemorrhoids were identified. The scope was then advanced to the cecum difficulty. The TI and appendiceal orifice were identified. The prep was BB PS 3 in all segments for total of 9 9. The scope was then slowly retracted over minutes back into the rectum., AVMs, or diverticula visualized. The mucosa is pink and healthy. The patient has noted change in bowel habits since she took antibiotics for COVID. Biopsies were done of the cecum/70 cm/60 cm / 30 cm/rectum. All specimens are retrieved and no bleeding is noted. The scope was re there are no polypsmoved and the patient was woken up and taken back to Same day surgery in stable condition. Severe pain The patient tolerated the procedure well and there were no immediate complications. Follow up: The patient should follow up in 10 years unless they develop changes in bowel habits or other new gastrointestinal complaints.
[2022-06-07 07:43] VITALS: BP 116/56; PULSE 64; RESP 17; TEMP 36.6; O2SAT 99
--- NOTE | 2022-06-07 08:17 | W.ANESPRE ---
General Info Date of Service Date Performed: 06/07/22 Height: 5 ft 9 in Weight: 62.7 kg Body Mass Index (BMI): 20.4 Surgical Procedure: Operation Date: 06/07/22 09:05 Proposed Procedure Side Surgeon josesito Mendez, DO Meds Allergies and Home Medications Allergies Allergy/AdvReac Type Severity Reaction Status Date / Time Sulfa (Sulfonamide Allergy Severe RASH Verified 06/07/22 07:57 Antibiotics) Home Medication Medication Instructions Recorded aspirin 81 mg chewable tablet 81 mg PO DAILY 05/15/15 (Aspirin Low-Strength) multivit with minerals-iron 18 1 tab PO DAILY 07/24/18 mg-folic ac 400 mcg-vit K 25 mcg tablet (Adults Multivitamin) vitamin B complex 1 tab PO DAILY 12/14/18 calcium carbonate 500 mg calcium 500 mg PO DAILY 08/24/21 (1,250 mg) tablet cholecalciferol (vitamin D3) 25 5,000 unit PO DAILY 08/24/21 mcg (1,000 unit) capsule vitamin K2 45 mcg capsule 45 mcg PO DAILY 08/24/21 gabapentin 300 mg capsule 300 mg PO TID PRN pain #90 caps 05/30/22 yklxkuyj-xzg-ht3-dha 133 mg-epa 1 cap PO DAILY 06/06/22 167 fm-pebh-oiqg-lactoferrin capsule (Dry Eye Formula) propylene glycol 0.6 % eye drops 1 drp ophthalmic (eye) DIRECTED 06/06/22 (Systane Complete) Current Visit Medications: Current Medications Generic Name Dose Route Start Last Admin Trade Name Freq PRN Reason Stop Dose Admin Hyoscyamine Sulfate 0.125 mg 06/06/22 16:06 Hyoscyamine 0.125 Mg Sl/Oral/Chew SL DIRECTED PRN Ringer's Solution 1,000 mls @ 80 mls/hr 06/07/22 06:00 IV 06/07/22 23:59 INFUSION REVA IV Miscellaneous Supplies 1 each 06/07/22 06:00 Iv Access IV 06/07/22 23:59 DIRECTED REVA Ondansetron HCl 4 mg 06/06/22 16:06 Ondansetron 4 Mg/2 Ml Vial IVP Q4H PRN PRN Nausea / Vomiting Sodium Chloride 0 ml 06/07/22 06:00 Normal Saline Flush 10 Ml Syr IV 06/07/22 23:59 PRN PRN Sodium Chloride 0 ml 06/07/22 06:00 Normal Saline 10 Ml Vial IJ 06/07/22 23:59 DIRECTED PRN Sterile Water 0 ml 06/07/22 06:00 Water,Injection,Sterile 10 Ml Vial IJ 06/07/22 23:59 DIRECTED PRN PFSH Active Problems Active Problems: Problem Status Onset Code Colon cancer screening Z12.11 Upper airway resistance syndrome G47.8 Medical History Medical History COVID-19 (~03/08/22) Herpes zoster (~2017) Left flank Hyperlipidemia Idiopathic small fiber peripheral neuropathy Osteoarthritis of right hip Mild-mod right hip dysplasia Osteopenia Dexa 2019 Paresthesia of right leg Periodic limb movement disorder PSG 08/23/13 Medical History Comments:: Inspiratory wheezes in bases b/l posterior. Surgical History Surgical History H/O bilateral salpingo-oophorectomy (12/21/18) By Dr. Chambers at [facility] for suspicious left ovarian cyst S/P colonoscopy (02/10/12) S/P laparoscopic procedure (~1996) Diagnostic lap for endometriosis Tobacco Smoking/Tobacco Use Status: Never Passive smoking exposure: Yes Alcohol Alcohol Intake: current Alcohol intake frequency: a few times a week Alcohol type: wine Substance Use Substance use: Never Substance use type: does not use Prental History History 2 Para 2 Hx # Term Pregnancies Multiple births Hx # Pregnancies Ectopic pregnancies AB induced Hx Number of Living Children 2 AB spontaneous Vital Signs and Lab Results Vital Signs Most Recent Vital Signs in EMR: Most Recent Vital Signs Temp Pulse Resp BP Pulse Ox 36.6 C 64 17 116/56 L 99 06/07/22 07:43 06/07/22 07:43 06/07/22 07:43 06/07/22 07:43 06/07/22 07:43 Lab Results Blood Type / Crossmatch: No Data to Display Complete Blood Count: No Data to Display Complete Metabolic Panel: No Data to Display Liver Function Panel: No Data to Display Coagulation Panel: No Data to Display Cardiac Panel: No Data to Display Arterial Blood Gas: No Data to Display Venous Blood Gas: No Data to Display Pancreas Panel: No Data to Display Thyroid Panel: No Data to Display Infectious Disease: No Data to Display Blood Cultures: No Data to Display Toxicology Panel: No Data to Display Anesthesia Assessment and Plan Anesthesia History Personal History: No History of Anesthesia Complications Family History: No Family History of Anesthesia Complications Exercise Tolerance Exercise Tolerance: Metabolic Equivalents>4 Pertinent Negatives Pertinent Negatives: No Symptoms of GERD, No Major Cardiovascular Symptoms or Complaints, No Major Pulmonary Symptoms or Complaints and No History of CVA/TIA Cardiac & Pulmonary Exam Cardiac Exam: Normal S1/S2 Heart Sounds Pulmonary Exam: Clear Bilateral Breath Sounds Implantable Cardiac Device Does patient have a Pacemaker or an ICD?: No Airway Exam Known Difficult Airway: No Mallampati Class: 1 Mouth Opening: Normal (> 3cm) Thyromental Distance: Greater than 3 cm Neck Range of Motion: Full ROM Neck Circumference: Normal Teeth Condition: Normal Dentition Airway Comments: Lower left cracked tooth ASA Classification ASA Score: ASA 2 Emergency Case?: No NPO Status NPO Status: NPO Clears >2 hours, Solids >8 hours Anesthesia Plan Resuscitation Status: Full Code Anesthesia Technique: General Anesthesia Airway Planned: Natural Airway Monitors Used: Standard Monitors
[2022-06-07] MEDS: Lactated Ringers 1,000 ML 80 ML IV (08:21)
[2022-06-07 08:22] VITALS: BMI 20.4
--- NOTE | 2022-06-07 09:19 | BOWEL_PTH ---
PATIENT: Almaz Hall V LOC: [facility] U#:[id number] AGE/SX: 62/F ROOM: RE06/07/[address]: Brandie Mendez : 1960 BED: DIS: 06/07/2022 SPEC #: [id number] RECD: 06/07/22 13:02 STATUS: [facility] #: [id number] ELISSA: 06/07/22 09:[address]: Brandie Mendez DEPT: Surgical Specimen RECD BY: Meenakshi Collins ENTERED: 06/07/22 13:05 SP TYPE: Bowel OTHR DR: Cira Bennett, LUIS Tissues: 1 - BIOPSY BOWEL 2 - BIOPSY BOWEL 3 - BIOPSY BOWEL 4 - BIOPSY BOWEL 5 - BIOPSY BOWEL Procedures: GROSS AND MICRO LEVEL 4 Comments: [id number]
[2022-06-07 09:35] VITALS: BP 109/62; PULSE 73; RESP 18; TEMP 36; O2SAT 100
--- NOTE | 2022-06-07 09:37 | W.ANESPOSTOP ---
Postoperative Evaluation Date, Time and Location Date Performed: 06/07/22 Time Performed: 09:37 Patient Location: Day Surgery Unit Vital Signs Most Recent Imported Vital Signs: Most Recent Vital Signs Temp Pulse Resp BP Pulse Ox 36.6 C 64 17 116/56 L 99 06/07/22 07:43 06/07/22 07:43 06/07/22 07:43 06/07/22 07:43 06/07/22 07:43 Most Recent Manually Entered Vital Signs: Adult Blood Pressure: 109/62 Heart Rate: 74 Respirations: 10 Oxygen Saturation (%): 99 Temperature (C): 36.3 C Pain Score (0-10 Scale): 0 Pain Score Most Recent Pain Score: Most Recent Pain Score Pain Level 0 06/07/22 07:43 Assessment Mental Status: Awake (Alert & Oriented to Patient Baseline) Airway and Respiratory Function: Patent airway with normal (patient baseline) respiratory exam Cardiovascular Function: Hemodynamically Stable Hydration Status: Adequately Hydrated Nausea & Vomiting: No Nausea or Vomiting Pain: Pt. Denies Any Pain Peripheral Nerve Block: Patient did not receive a nerve block
[2022-06-07 09:38] VITALS: BP 109/62; PULSE 74; RESP 10; TEMPC 36.3; O2SAT 99
[2022-06-07] MEDS: Hyoscyamine 0.125 MG SL/ORAL/CHEW SL (09:55)
[2022-06-07 10:05] VITALS: BP 135/80; PULSE 66; RESP 17; TEMP 36.2; O2SAT 100
[2022-06-07 10:55] LABS: C Diff PCR Negative (Negative)
== END 2022-06-07 10:37 | disposition home or self-care (01) ==
LOC: SUR 07:27
PROVIDERS: PCP Nurse Practitioner Family; Visit Provider Surgery
PROC: 0DJD8ZZ Inspection of Lower Intestinal Tract, Via Natural or Artificial Opening Endoscopic (ICD-10-PCS; CPT 45378; principal; 2022-06-07 09:00)
DX: Z12.11 Encounter for screening for malignant neoplasm of colon (principal)
CPT/HCPCS: 45378; 87493; 88305; J3490

== ENCOUNTER → 2022-07-29 09:14 | Outpatient (CLI) | payer BC, SELFPAY ==
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
--- OUTSIDE RECORDS SUMMARY | 2022-07-29 09:18 | XMS_ITS | Encounter Summary ---
:1960 Author Organization [facility] [place] [address] Care Team Providers Name Role Phone Sherita Abernathy MD Primary Care Provider Encounter Details Date Type Department Care Team Description 08/07/2012 Orders Only Orthopaedics at [facility] Paco Loya, Right hip pain [facility] Sushma cunningham MD (Primary Dx) [place] [address] [address]no [phone] [place] [address] Social History Tobacco Use Types Packs/Day Years Used Date Never Assessed Sex Assigned at Date Recorded Not on file documented as of this encounter Plan of Treatment Not on filedocumented as of this encounter Visit Diagnoses Diagnosis Right hip pain - Primary Pain in joint, pelvic region and thigh documented in this encounter Care Teams Drag Out Worker Relationship Specialty Start Date End Date Sherita Abernathy MD PCP - General 09/21/10 [address] [place] [address] documented as of this encounter
--- OUTSIDE RECORDS SUMMARY | 2022-07-29 09:18 | XMS_ITS | Encounter Summary ---
:1960 Author Organization [facility] [place] [address] Care Team Providers Name Role Phone Sherita Abernathy MD Primary Care Provider Encounter Details Date Type Department Care Team Description 08/01/2012 Orders Only Orthopaed[place] [facility] [place] Loya [place] [facility] [address] [place] [address] [address] [phone] [place] [id number] (Wo rk) Social History Tobacco Use Types Packs/Day Years Used Date Never Assessed Sex Assigned at Date Recorded Not on file documented as of this encounter Plan of Treatment Not on filedocumented as of this encounter Procedures Procedure Name Priority Date/Time Associated Diagnosis Comme nts FILM LIBRARY Routine 08/01/2012 7:44 AM Results f or this STORAGE ONLY MR HIP EDT procedur e are in the results section. documented in this encounter Results FILM LIBRARY- STORAGE ONLY MR HIP (08/01/2012 7:44 AM EDT) Anatomical Region Laterality Modality Other Specimen (Source) Anatomical Collection Method Collection Time Re ceived Time Location / / Volume Laterality 08/01/2012 7:44 AM EDT Narrative 12/19/2013 9:40 PM EST This is a non-reportable exam. Procedure Note Scout Martinez - 12/19/2013Formatting of t his note might be different from the original. This is a non-reportable exam. Paco Loya MD IMG FILM LIBRARY ORDERABLES documented in this encounter Visit Diagnoses Not on filedocumented in this encounter Care Teams Infant Toddler Lead Teacher Relationship Specialty Start Date End Date Sherita Abernathy MD PCP - General 09/21/10 [address] [place] [address] documented as of this encounter
--- OUTSIDE RECORDS SUMMARY | 2022-07-29 09:18 | XMS_ITS | Clinical Summary ---
:1960 Author Organization [facility] [place] [address] Care Team Providers Name Role Phone Sherita Abernathy MD Primary Care Provider Allergies Active Allergy Reactions Severity Noted Date Comments Sulfa (Sulfonamide Antibiotics) Rash 2 Medications Medication Sig Dispensed Refills Start Date End Date Status DOCOSAHEXANOIC ACID/EPA Take by mouth. 0 Active (FISH OIL ORAL) aspirin 81 mg EC tablet Take 81 mg by 0 Active mouth daily. ASCORBATE CALCIUM Take by mouth. 0 Active (VITAMIN C ORAL) CALCIUM Take by mouth. 0 Activ e CARBONATE/VITAMIN D3 (CALCIUM + D ORAL) terbinafine (LAMISIL) Take 250 mg by 0 Active 250 mg tablet mouth daily. Take one daily for 7 days then do not take for 3 weeks x 4 months Active Problems No known active problems Family History Medical History Relation Comments Coronary Artery Disease Father heart attack High Blood Pressure Father Heart Disease Maternal Grandmother heart valve replace ment High Blood Pressure Mother Heart Disease Paternal Grandmother congestive heart fa ilure Depression Sister Relation Status Comments Father Maternal Grandmother Mother Paternal Grandmother Sister Social History Tobacco Use Types Packs/Day Years Used Date Never Smoker Smokeless Tobacco: Never Used Alcohol Use Standard Drinks/Week Comments Yes 0 (1 standard drink = 0.6 oz pure alcoho l) Sex Assigned at Date Recorded Not on file Last Filed Vital Signs Vital Sign Reading Time Taken Comments Blood Pressure 132/78 08/29/2012 7:55 AM EDT Pulse - - Temperature - - Respiratory Rate - - Oxygen Saturation - - Inhaled Oxygen Concentration - - Weight 64.9 kg (143 lb) 08/29/2012 7:55 AM EDT Height 177.8 cm (5' 10) 08/29/2012 7:55 AM EDT Body Mass Index 20.52 08/29/2012 7:55 AM EDT Plan of Treatment Health Maintenance Due Date Last Done Comments Covid-19 Vaccine (#1) 01/31/1965 HIV screen 01/31/1978 Hepatitis C Screening 01/31/1978 Tdap adult 01/31/1979 Tetanus vaccine 01/31/1979 HPV test 01/31/1990 PAP Smear 01/31/1990 Breast Cancer Share Decision Needed 2000 Colonoscopy 01/31/2005 Breast Cancer screening 01/31/2010 Zoster vaccine (1 of 2) 01/31/2010 Advance Directive 01/31/2015 Influenza (Flu) vaccine (1 of 1 - Influenza standard 06/30/2022 series) Care Teams Light Adjuster Relationship Specialty Start Date End Date Sherita Abernathy MD PCP - General 09/21/10 [address] [place] [address]
--- OUTSIDE RECORDS SUMMARY | 2022-07-29 09:18 | XMS_ITS | Encounter Summary ---
:1960 Author Organization [facility] [place] [address] Care Team Providers Name Role Phone Sherita Abernathy MD Primary Care Provider Reason for Visit Reason Comments Skin Lesion Encounter Details Date Type Department Care Team Description 05/07/2013 Follow-Up Dermatology at Mario Gusman [facility] ([address] MD Alireza Dx) [address] [place] [address] [facility] [place], [place] [address] Social History Tobacco Use Types Packs/Day Years Used Date Never Smoker Smokeless Tobacco: Never Used Alcohol Use Standard Drinks/Week Comments Yes 0 (1 standard drink = 0.6 oz pure alcoho l) Sex Assigned at Date Recorded Not on file documented as of this encounter Progress Notes Mario Acosta MD - 05/07/2013 10:55 AM EDT Almaz Hall 1960 53 y.o. Chief Complaint: 1. Limited Spot Examination 2. Lesion on leg 3. No history skin cancer - ? FH/ Mother had unknown process removed, ? Melanoma, doubtful HISTORY/Objective: Almaz Hall is a 53 y.o. year old female. New patient to me. This patient is being seen in consultation at the request of Dr. Anderson who instructed the patient to see me for the evaluation of lesion on leg. Today's issues and concerns: - Focal, limited exam today, can return for full skin exam later date - Non bothersome lesion on right lower lateral leg, present for ~10 years. EXAMINATION/Objective: Patient appeared healthy and in no apparent distress. Specific focal area examined: Right lower leg Today's Specific Findings on Examination: - firm papule, centrally raised and sclerotic, peripheral hyperpigmentation, dimpling with lateral pressure right lower lateral leg - all consistent with a dermatofibroma, mildly pigmented, benign DIAGNOSIS/ASSESSMENT: 1. Dermatofibroma PLAN: Discussion: 1. Reassured this is a benign process, no need for intervention Follow up: 1. PRN I am documenting this encounter acting as the scribe for and in the presence of MASOUD Arevalo, ERNIE, WRAPPING MACHINE HELPER. I performed the above scribed service and agree with the accuracy of the documentation in this encounter, Josephine Acosta MD documented in this encounter Plan of Treatment Not on filedocumented as of this encounter Visit Diagnoses Diagnosis Dermatofibroma - Primary Benign neoplasm of skin, site unspecifie d documented in this encounter Care Teams Plant Tour Guide Relationship Specialty Start Date End Date Sherita Abernathy MD PCP - General 09/21/10 [address] [place] [address] documented as of this encounter
--- OUTSIDE RECORDS SUMMARY | 2022-07-29 09:18 | XMS_ITS | Encounter Summary ---
:1960 Author Organization [facility] [place] [address] Care Team Providers Name Role Phone Sherita Abernathy MD Primary Care Provider Encounter Details Date Type Department Care Team Description 08/29/2012 Hospital Encounter XRay at [facility] [place] Right hip pain [address] [facility] [place] [address] Social History Tobacco Use Types Packs/Day Years Used Date Never Smoker Smokeless Tobacco: Never Used Alcohol Use Standard Drinks/Week Comments Yes 0 (1 standard drink = 0.6 oz pure alcoho l) Sex Assigned at Date Recorded Not on file documented as of this encounter Medications at Time of Discharge Medication Sig Dispensed Refills Start Date End Date DOCOSAHEXANOIC ACID/EPA Take by mouth. 0 (FISH OIL ORAL) aspirin 81 mg EC tablet Take 81 mg by mouth 0 daily. ASCORBATE CALCIUM (VITAMIN C Take by mouth. 0 ORAL) CALCIUM CARBONATE/VITAMIN D3 Take by mouth. 0 (CALCIUM + D ORAL) terbinafine (LAMISIL) 250 mg Take 250 mg by 0 tablet mouth daily. Take one daily for 7 days then do not take for 3 weeks x 4 months documented as of this encounter Plan of Treatment Not on filedocumented as of this encounter Procedures Procedure Name Priority Date/Time Associated Diagnosis Comme nts XR PELVIS AP AND Routine 08/29/2012 7:36 AM Pain in joint, Res ults for this HIP 2 VIEWS OF 1 EDT pelvic region and proced ure are in HIP thigh the results section. documented in this encounter Results XR PELVIS AP AND HIP 2 VIEWS OF 1 HIP (08/29/2012 7:36 AM EDT) Anatomical Region Laterality Modality Pelvis, Hip N/A Radiographic Imaging Specimen (Source) Anatomical Collection Method Collection Time Re ceived Time Location / / Volume Laterality 08/29/2012 7:36 AM EDT Narrative 08/29/2012 9:56 AM EDT Examination AP PELVIS AND 2 VIEWS ONE HIP/RIGHT, ?? Clinical History RT HIP LABRAL TEAR Comparison MR of the right hip from outside [facility], 08/01/2012. Technique AP pelvis, AP and frog-leg lateral views of the right hip,. Findings Evaluation of the right hip demonstrates no fracture or dislocation. ??The right hip joint appears maintained and femoral contour is maintained. ??The Tonnis angle measures 17 degrees, suggesting th at the right acetabulum is slightly shallow. ??The lateral center-edge angle is borderline at 26 degrees. ??No significant osteophyte formation. There is minimal enthesopathy arising from the right greater trochanter. No patholo gic soft tissue calcifications. ??Left hip is unremarkable. ??There are mild de generative changes of the symphysis pubis and sacroiliac joints. Impression No acute osseous abnormality. 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 Procedure Note Zuleima Denson MD - 08/29/2012Formatt ing of this note might be different from the original. Examination AP PELVIS AND 2 VIEWS ONE HIP/RIGHT, Clinical History RT HIP LABRAL TEAR Comparison MR of the right hip from outside [facility], 08/01/2012. Technique AP pelvis, AP and frog-leg lateral views of the right hip,. Findings Evaluation of the right hip demonstrates no fracture or dislocation. The right hip joint appears maintained and femoral contour is maintained. The Tonnis angle measures 17 degrees, suggesting th at the right acetabulum is slightly shallow. The lateral center-edge angle i s borderline at 26 degrees. No significant osteophyte formation. There is minimal enthesopathy arising from the right greater trochanter. No patholo gic soft tissue calcifications. Left hip is unremarkable. There are mild dege nerative changes of the symphysis pubis and sacroiliac joints. Impression No acute osseous abnormality. 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 Paco Loya MD IMG DX ORDERABLES documented in this encounter Visit Diagnoses Diagnosis Right hip pain Pain in joint, pelvic region and thigh documented in this encounter Care Teams Director Learning Relationship Specialty Start Date End Date Sherita Abernathy MD PCP - General 09/21/10 [address] [place] [address] documented as of this encounter
--- OUTSIDE RECORDS SUMMARY | 2022-07-29 09:18 | XMS_ITS | Encounter Summary ---
:1960 Author Organization [facility] Address [address] [address] Care Team Providers Name Role Phone Sherita Abernathy MD Primary Care Provider Reason for Visit Reason Comments Skin Check Encounter Details Date Type Department Care Team Description 05/17/2013 Follow-Up Dermatology at Isabel Dhillon De rmatofibrodomo (Primary Dx); Patricia LAMAR Benign nevus; [address] [facility] [place] [address] [facility] [place] [id number] Social History Tobacco Use Types Packs/Day Years Used Date Never Smoker Smokeless Tobacco: Never Used Alcohol Use Standard Drinks/Week Comments Yes 0 (1 standard drink = 0.6 oz pure alcoho l) Sex Assigned at Date Recorded Not on file documented as of this encounter Progress Notes Ovi Chang MD - 05/28/2013 4:06 PM EDT I was the supervising physician working with dermatology resident Dr. Najera in the dermatology clinic during this patient visit. The level of Resident supervision for this patient visit was indirect supervision with direct supervision immediately available. (definition: [facility] GME Policy Statement on [facility] duate Medical Education, Supervision of Graduate Medical Trainees) I was immediately available to Dr. Najera for questions and discussion regarding this visit. I have reviewed her encounter note detailsand level of service. OVI CHANG MD, MD Staff Physician Isabel Najera MD - 05/17/2013 1:54 PM EDT DERMATOLOGY - NEW PATIENT NOTE Date of service: 05/17/2013 Almaz Hall : 1960 Dermatology Resident Note: Isabel Najera MD Chief Problem: skin cancer screening Chief Complaint Patient presents with ??? Skin Check Ms. Almaz Hall is a 53 y.o. female. This is a new patient to me. Seen in consultation at the request of Sherita Anderson specifically for the evaluation and management of the above problem. HPI: Ms. Hall presents for a full skin exam. She was seen recently by Dr. Acosta for a DF on her leg. She has no concerns today. This is her first full skin exam. She protects her skin from the sun with sunscreen. 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 Medical History: There is no problem list on file for this patient. Medications: Current Outpatient Prescriptions Medication Sig Dispense Refill ??? DOCOSAHEXANOIC ACID/EPA (FISH OIL ORAL) Take by mouth. ??? aspirin 81 mg EC tablet Take 81 mg by mouth daily. ??? ASCORBATE CALCIUM (VITAMIN C ORAL) Take by mouth. ??? CALCIUM CARBONATE/VITAMIN D3 (CALCIUM + D ORAL) Take by mouth. ??? terbinafine (LAMISIL) 250 mg tablet Take 250 mg by mouth daily. Take one daily for 7 days then do not take for 3 weeks x 4 months Allergies: Allergies Allergen Reactions ??? 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 Skin: A full skin examination was performed. This includes the head, neck, face and scalp including behind the ears. The chest, abdomen, back, and axillae, as well as the arms, hands, palms, fingers. Legs, feet, toes and soles were also examined. Buttocks and breasts were also examined with patient consent. Genitalia were not examined. Specific skin findings: 1. Erythematous papules central puctum left neck, right post auricular 2. Multiple, 0.3-0.5cm, medium-brown, evenly-pigmented macules and papules. All with regular pigmentpattern on dermoscopy. No pigmented lesions suspicious for melanoma. 3. firm papules, centrally raised and sclerotic, peripheral hyperpigmentation. Dimpling with lateralpressure, right lateral leg, left posterior calf Diagnosis/Assessment/Treatment Plan: 1. Insect bites - reassurance given. Watch to make sure they resolve, call if not resolving. 2. Benign nevi - reassurance given. Discussed importance of sun protection, sun avoidance strategies, protective clothing, and sunscreen. I discussed warning signs for skin cancer, including the ABCE'sof melanoma. 3. Dermatofibroma (DF) - Discussed this benign lesion, reassurance given. Call if changing Follow-up: RTC in 1 year. Instructed to call for questions or concerns. I am documenting this encounter acting as the scribe for and in the presence of Dr. Najera. Note initiated by: .ERNIE Ya MD Resident in Dermatology [facility] Staff bilingual administrative assistant: Ovi Chang MD Section of Dermatology [facility] documented in this encounter Plan of Treatment Not on filedocumented as of this encounter Visit Diagnoses Diagnosis Dermatofibroma - Primary Benign neoplasm of skin, site unspecifie d Benign nevus Benign neoplasm of skin, site unspecifie d Insect bite Other, multiple, and unspecified sites, insect bite, nonvenomous, without mention of infection documented in this encounter Care Teams Roll Cleaner Relationship Specialty Start Date End Date Sherita Abernathy MD PCP - General 09/21/10 [address] [place] [address] documented as of this encounter
== END ==
PROVIDERS: PCP Nurse Practitioner Family; Visit Provider Nurse Practitioner Family
DX: S22.42XA Multiple fractures of ribs, left side, initial encounter for closed fracture (principal); X58.XXXA Exposure to other specified factors, initial encounter
CPT/HCPCS: 71046; 71100

== ENCOUNTER → 2022-09-19 01:37 | Outpatient (CLI) | payer BC, SELFPAY ==
--- NOTE | 2022-09-19 08:30 | DI.MAMMO_ITS ---
Exam(s) MAMMO SCREENING EXAM: MAMMO SCREENING CLINICAL HISTORY: screening,z12.39 TECHNIQUE: Mammograms were interpreted according to the usual protocol including computer analysis w [employer] CAD system, tomosynthesis and C-view imaging. COMPARISON: 2012 through 13 January 2022 FINDINGS: The breasts are composed of heterogeneously dense fibroglandular densities, Breast Density category C . No suspicious masses or suspicious microcalcifications are seen. No skin thickening or abnormal axillary lymph nodes are seen. There has been no significant change from prior exams. IMPRESSION: BI-RADS Category 1, Negative mammogram. Yearly screening mammography is recommended. Breast Density Category C, heterogeneously Dense. The mammogram demonstrates the patient's breast tissue is dense. Dense breast tissue is very common a nd is not abnormal but dense breast tissue can make it harder to find cancer on a mammogram. Also, de nse breast tissue may increase breast cancer risk. This information about the result of the mammogram report was provided to the patient to raise their awareness. Use this report when you speak with the patient about their risks for breast cancer, which includes their family history. At that time, you may recommend additional screening tests (Ultrasound or MRI) as they might be useful based on their r isk. A negative radiographic report should not delay biopsy if a dominant or clinically suspicious mass is present. Up to ten percent of cancers are not identified on mammography. A negative report may reinforce clinical impression. Adenosis and dense breasts may obscure an underlying neoplasm. False positive reports average 6 to 10%.
--- NOTE | 2022-09-19 15:22 | DI.RAD_ITS ---
Exam(s) XR CHEST 2V PA LATERAL EXAM: XR CHEST 2V PA LATERAL CLINICAL HISTORY: Re-evaluate hyperinflation seen on xray,r09.89 TECHNIQUE: 2D digital imaging was performed. COMPARISON: No exams were available for comparison FINDINGS: HEART: Normal size. Aorta: Normal PULMONARY VASCULATURE: Normal. LUNGS: Hyperinflated. Emphysematous changes and mild scarring in the upper lobes. No focal infiltra te.. PLEURAL SPACE: No pleural effusion or pneumothorax. BONE:Unremarkable for age. IMPRESSION: Stable hyperinflation. DATA REPOSITORY: RADIATION DOSE DELIVERED:
== END ==
PROVIDERS: PCP Nurse Practitioner Family; Visit Provider Nurse Practitioner Family
DX: Z12.31 Encounter for screening mammogram for malignant neoplasm of breast (principal); R09.89 Other specified symptoms and signs involving the circulatory and respiratory systems; R92.8 Other abnormal and inconclusive findings on diagnostic imaging of breast
CPT/HCPCS: 77063; 77067; 71046

== ENCOUNTER 2022-09-30 02:49 | Outpatient (CLI) | payer BC, SELFPAY ==
[2022-09-30] MEDS: Inhaler, Assist Device 1 EACH MC (16:30)
[2022-09-30] MEDS: Albuterol HFA 18 GM 200 PUFF INH IH (16:30)
--- NOTE | 2022-10-03 09:37 | W.PFT ---
Date of service: 09/30/22 Time of Service: 14:59 Pulmonary Function Test Result Requesting Provider Cira Bennett Indications: Query COPD Interpretation Spirometry: There is no airflow limitation. There is no significant bronchodilator response. Lung Volumes: Lung volumes are normal. Diffusion Capacity: Normal diffusion Airway Pressure: Normal airways resistance. Impression Normal pulmonary function testing. Clinical Correlation therefore is recommended.
== END 2022-09-30 02:50 | disposition home or self-care (01) ==
LOC: RT 02:49
PROVIDERS: PCP Nurse Practitioner Family; Visit Provider Nurse Practitioner Family
DX: J44.9 Chronic obstructive pulmonary disease, unspecified (principal)
CPT/HCPCS: 94060; 94726; 94729

== ENCOUNTER 2023-08-31 11:57 | Outpatient (REF) | payer BC, SELFPAY ==
--- NOTE | 2023-08-31 10:10 | PAPFT_PTH ---
PATIENT: Almaz Hall V LOC: [facility] U#:[id number] AGE/SX: 63/F ROOM: RE08/31/[address]: LUIS Montiel : 1960 BED: DIS: 08/31/2023 SPEC #: [id number] RECD: 09/01/23 13:02 STATUS: CHANTAL REJeovany #: [id number] ELISSA: 08/31/23 10:[address]: Cira Bennett [facility]PT[facility] Cytology RECD BY: Meenakshi Collins Tissues: 1 - CX/ENDOCX FOR PAP SMEARS Procedures: PAP THIN PREP/UVM Screening HPV DNA PROBE Comments: [id number]
== END 2023-08-31 11:58 | disposition home or self-care (01) ==
LOC: LBN 11:57
PROVIDERS: PCP Nurse Practitioner Family; Visit Provider Nurse Practitioner Family
DX: Z12.4 Encounter for screening for malignant neoplasm of cervix (principal); Z11.51 Encounter for screening for human papillomavirus (HPV)
CPT/HCPCS: 88142; 87624

== ENCOUNTER → 2023-09-27 02:50 | Outpatient (CLI) | payer BC, SELFPAY ==
--- NOTE | 2023-09-27 12:25 | DI.MAMMO_ITS ---
Exam(s) MAMMO SCREENING EXAM: MAMMO SCREENING CLINICAL HISTORY: screening,z12.39 TECHNIQUE: Bilateral full field digital CC and MLO mammographic images were obtained with 3D tomosyn thesis and utilizing computer aided detection (CAD). COMPARISON: Available for comparison. FINDINGS: Masses/Architectural Distortion: None seen. Microcalcifications: No suspicious pleomorphic-type are seen. Skin Thickening/Nipple Retraction: None. IMPRESSION: 1. No significant interval change with no specific features of malignancy noted. 2. Unless there is more urgent need, screening mammography is recommended, as per [employer] guidelines. BI-RADS Category 1 - Negative Breast Density - Category C - Heterogeneously dense Breast density category C or D implies that the patient has dense breast tissue. Dense breast tissue is very common and is not abnormal but dense breast tissue can make it harder to find cancer on a ma mmogram. Also, dense breast tissue may increase their breast cancer risk. This information about the result of the mammogram report was provided to the patient to raise their awareness. Use this report when you speak with the patient about their risks for breast cancer, which includes their family hist ory. At that time, you may recommend for more screening tests (Ultrasound or MRI) as they might be us eful based on their risk. A negative radiographic report should not delay biopsy if a dominant or clinically suspicious mass is present. Up to ten percent of cancers are not identified on mammography. A negative report may reinforce clinical impression. Adenosis and dense breasts may obscure an underlying neoplasm. False positive reports average 6 to 10%. Patient will receive a letter notifying them of these results.
== END ==
PROVIDERS: PCP Nurse Practitioner Family; Visit Provider Nurse Practitioner Family
DX: Z12.31 Encounter for screening mammogram for malignant neoplasm of breast (principal)
CPT/HCPCS: 77063; 77067

== ENCOUNTER 2025-02-07 00:52 | Outpatient (CLI) | payer MEDICARE, SELFPAY ==
[2025-02-07 09:51] LABS: Anion Gap 6.3 mmol/L (3-11); BUN 16 mg/dL (7-18); CO2 32.7 mmol/L (21.0-32.0); CREATININE 0.9 mg/dL (0.55-1.02); Calcium 9.5 mg/dL (8.5-10.1); Calculated LDL 128 mg/dL (<100); Chloride 106 mmol/L (98-107); Cholesterol 247 mg/dL (<200); Estimated GFR 70.95 (mL/min/1.73m2); Glucose 87 mg/dL (74-106); HDL Cholesterol 113 mg/dL (>or=50); Potassium 4.3 mmol/L (3.5-5.1); Sodium 145 mmol/L (136-145); Triglyceride 33 mg/dL (<150)
== END 2025-02-07 00:53 | disposition home or self-care (01) ==
LOC: LBO 00:52
PROVIDERS: PCP Nurse Practitioner Family; Visit Provider Nurse Practitioner Family
DX: E78.5 Hyperlipidemia, unspecified (principal)
CPT/HCPCS: 36415; 80048; 80061

== ENCOUNTER 2025-04-16 10:26 | Outpatient (CLI) | payer MEDICARE, OTHER, SELFPAY ==
--- NOTE | 2025-04-16 10:15 | DI.RAD_ITS ---
Exam(s) XR WRIST LT LIMITED EXAM: XR WRIST LT LIMITED CLINICAL HISTORY: F/U FRACTURE. TECHNIQUE: 2D digital imaging was performed of the left wrist. Three images were obtained. PA and lateral views were obtained. COMPARISON: CR XR WRIST MIN 3 VIEWS LT from 04/13/2025 CR XR WRIST 2V LT from 04/13/2025 CR XR ELBOW CMPLT MIN 3V LT from 04/13/2025 FINDINGS: The patient's wrist is in a cast. BONES: There has been no change in alignment of the comminuted distal radial fracture. There is persistent mild impaction and dorsal angulation present. There is again seen a fracture of the distal ulnar metaphysis with slight displacement noted. There may be mild increased displacement of the ulnar fracture compared to the prior examination. No bony destructive lesion is seen. JOINTS: The carpal bones are normally aligned. SOFT TISSUE: Normal. IMPRESSION: Distal radial and ulnar fractures as described above. DATA REPOSITORY: RADIATION DOSE DELIVERED:
== END 2025-04-16 10:27 | disposition home or self-care (01) ==
LOC: DIORS 10:26
PROVIDERS: PCP Nurse Practitioner Family; Referring Provider Nurse Practitioner Family; Visit Provider Student in an Organized Health Care Education/Training Program
DX: S62.102A Fracture of unspecified carpal bone, left wrist, initial encounter for closed fracture (principal); S52.502A Unspecified fracture of the lower end of left radius, initial encounter for closed fracture; S52.602A Unspecified fracture of lower end of left ulna, initial encounter for closed fracture; S70.02XA Contusion of left hip, initial encounter; X58.XXXA Exposure to other specified factors, initial encounter; Y93.55 Activity, bike riding
CPT/HCPCS: 99214; 73100